=== PATIENT | male | born 1980 | race Caucasian/White ===

== ENCOUNTER 2024-04-06 13:14 | Emergency (ER) | payer OTHER, SELFPAY ==
[2024-04-06 13:22] VITALS: BP 153/98
[2024-04-06 14:37] LABS: % Basophils 1.2 % (0-2); % Eosinophils 1.2 % (0-6); % Immature Granulocytes 0.5 % (0-0.5); % Neutrophils 75.1 % (42.2-75.2); Absolute Basophils 0.1 10^3/uL (0-0.2); Absolute Eosinophils 0.1 10^3/uL (0-0.7); Absolute Lymphocytes 0.7 10^3/uL (1.2-3.4); Absolute Monocytes 0.7 10^3/uL (0.1-0.6); Absolute Neutrophils 4.9 10^3/uL (1.4-6.5); Hematocrit 39.9 % (39.0-52.0); Hemoglobin 14.5 g/dL (13.0-18.0); Mean Corp Hgb Conc. 36.3 g/dL (33.0-37.0); Mean Corpuscular Hgb 33.2 pg (27.0-31.0); Mean Corpuscular Volume 91.3 fL (80.0-94.0); Mean Platelet Volume 10.2 fL (7.4-10.4); Nucleated Red Blood Cells % 0 % (-); Platelet Count 228 10^3/uL (130-400); Red Blood Cell Count 4.37 10^6/uL (4.70-6.10); Red Cell Dist. Width 12.8 % (11.5-14.5); White Blood Cell Count 6.5 10^3/uL (4.8-10.8)
[2024-04-06 14:39] LABS: Urine Albumin Trace (Neg - Trace); Urine Bilirubin 1+ (Negative); Urine Character Clear (Clear); Urine Color Yellow; Urine Glucose Negative (Negative); Urine Ketone Trace (Negative); Urine Leukocyte Trace (Negative); Urine Nitrite Negative (Negative); Urine Occult Blood Negative (Negative); Urine Urobilinogen 1+ (Neg - 1+)
[2024-04-06 14:47] LABS: Urine Mucus Moderate; Urine Squamous Cell 0-2 /LPF (Few)
[2024-04-06 14:48] LABS: Urine Bacteria Few (Negative); Urine Red Blood Cell 0-2 /HPF (0-2); Urine White Cell 0-2 /HPF (0-5)
--- NOTE | 2024-04-06 14:53 | ED.GENMED ---
History of Present Illness
General
Chief Complaint: Abdominal Pain
Source: patient
Time Seen by Provider: 04/06/24 14:37
History of Present Illness
History of Present Illness:
43yoM with a history of anxiety presenting for evaluation of abdominal and chest discomfort. Patient was helping his son move a mattress 2 days ago. He reports that the mattress was very heavy. While he was moving the mattress, he started to feel
like 'I was taking a stress test.' He states he felt like his heart was beating out of his chest. This resolved after a few minutes. Since then, he has been experiencing abdominal discomfort, primarily in the left upper quadrant. He describes
this as feeling like he is being punched. He also reports some discomfort in the left side of his chest which is mostly resolved currently. Patient endorses shortness of breath. He was concerned about his heart so decided to come to the ED for
evaluation. Patient had a nuclear stress test about 1 year ago which was normal without evidence of ischemia. Of note, patient's family had COVID last week and he has been feeling under the weather since then.
Past History
Past History
ED Past Medical History: HTN, Psychiatric (ADHD, alcohol abuse, anxiety, depression, substance abuse), Other (Depression ) and Other (Asperger's disease )
ED Past Surgical History: None
Social History
Tobacco: Smoker
Alcohol: None
Drug: None and Other (Benzodiazepines and other prescription medications )
Personal: Single
Living: with family
Employment: Not employed
Family History
Family History: Early CAD (Patient's father and paternal grandfather had coronary artery disease before the age of 40)
Phy Exam
General Physical Exam
General Presentation: well appearing and no apparent distress
General age: appears stated age
General Skin: warm and dry
General Habitus: normal
General Mental: alert
ENT Exam
ENT Exam: normocephalic
Cardiovascular Exam
Cardiovascular Exam: regular rate/rhythm, no edema, no murmur and normal peripheral pulses (2+ radial and DP pulses bilaterally)
Pulmonary Exam
Pulmonary Exam: lungs clear, no respiratory distress, no crackles and no wheezing
Gastrointestinal Exam
Gastrointestinal Exam: soft, non distended and tender (Very mild tenderness to the LUQ. No rebound or guarding noted.)
Palpation: left upper quadrant: Mild tenderness
[place] Coma Scale
Eye Opening: Spontaneous
Verbal Response: Oriented
Motor Response: Obeys Commands
GCS Total Score: 15
Skin Exam
Skin Exam: normal color and warm/dry
Psychiatric Exam
Psychiatric Exam: normal mood/affect
Course
Orders/Labs/Results
Orders:
Orders
04/06/24 13:16
EKG [Electrocardiogram (*1)] Urgent
Reason for Study: Chest Pain
EKG- Treatment ONCE
04/06/24 14:23
Complete Blood Count/With Diff Urgent
Comprehensive Metabolic Panel Urgent
Lipase Urgent
Troponin I Urgent
Urinalysis Reflex To Culture Stat
Date Specimen was Collected: 04/06/24
Time Specimen was Collected: 14:14
Urine Microscopic Reflex Cult Stat
04/06/24 14:53
CR Chest - 2 Views Urgent
Comment:
Reason For Exam: SOB
04/06/24 15:08
US Abdomen Complete/Upper Urgent
Comment:
Reason For Exam: LUQ pain, transaminitis
04/06/24 15:14
COVID-19 Antigen Urgent
Source: Nasal Swab
Influenza A+B Rapid Molecular Urgent
GARY Source: Nasal Swab
Specimen Description:
Respiratory Syncytial Virus Urgent
GARY Source: Nasal Swab
Specimen Description:
Date Specimen was Collected: 04/06/24
Time Specimen was Collected: 15:06
Abnormal Lab Results
04/06/24
14:23
RBC 4.37 L 10^6/uL
(4.70-6.10)
MCH 33.2 H pg
(27.0-31.0)
Absolute Lymphs (auto) 0.7 L 10^3/uL
(1.2-3.4)
Absolute Monos (auto) 0.7 H 10^3/uL
(0.1-0.6)
Lymphocytes % 11.0 L %
(20.5-51.1)
Monocytes % 11.0 H %
(1.7-9.3)
Glucose 106 H mg/dl
(70-99)
AST 96 H U/L
(17-59)
ALT 52 H U/L
(0-50)
Urine Ketones Trace A
(Negative)
Urine Bilirubin 1+ A
(Negative)
Leukocyte Esterase Rfl Trace A
(Negative)
Urine Bacteria (Reflex) Few A
(Negative)
04/06/24 14:23
04/06/24 14:23
Vital Signs
Initial and Last Documented VS:
Initial Vital Signs
Temp Pulse Resp BP Pulse Ox
98.7 F 86 18 153/98 96
04/06/24 13:22 04/06/24 13:22 04/06/24 13:22 04/06/24 13:22 04/06/24 13:22
Last Documented Vital Signs
Temp Pulse Resp BP Pulse Ox
98.7 F 79 20 138/100 98
04/06/24 13:22 04/06/24 17:15 04/06/24 17:15 04/06/24 16:44 04/06/24 17:15
MDM/Problems Addressed
Differential Diagnosis Includes:
43yoM here with abdominal and chest discomfort. Started while moving a heavy mattress 2 days ago. Symptoms are improving. Also c/o SOB. He is afebrile and hemodynamically stable. He is well appearing in no distress. There is very mild LUQ tenderness
on exam. Exam otherwise reassuring. Differential diagnosis includes but is not limited to: musculoskeletal, gastritis, ACS
Initial ED plan: Check abdominal labs, COVID/flu/RSV swab, troponin/EKG, and CXR.
*EKG
Interpreted by ED Provider?: Yes
EKG Intrepretation Date: 04/06/24
Heart Rate: 75
Rate: normal
Rhythm: sinus
[place]: normal axis
Interval: normal interval
QRS Pattern: normal QRS
Ischemia: no ischemia
*Critical Care Note
Total Time (30-74mins, 75-104mins- exclusive of procedures): Not Applicable
Update Note
Update Note:
EKG shows NSR without ischemic changes and troponin WNL. CXR is clear. Labs show a mild transaminitis with AST 96 and ALT 52. Abdominal ultrasound added which shows hepatomegaly and hepatic steatosis. CBD is on the upper limit of normal. Bilirubin
is normal and he has no RUQ tenderness on exam. Very low clinical suspicion for choledocholithiasis/cholangitis. On reassessment, he states he is completely asymptomatic and would like to go home. He was advised to f/u closely with his PCP. ED
return precautions discussed including fevers, RUQ pain, jaundice. He expressed understanding and is agreeable to plan. Patient discharged in stable condition.
ED Attending Note
-
Portions of this chart may have been created with voice recognition software.� Occasional wrong word or��sound alike� substitutions may have occurred due to the inherent limitations of voice recognition software.
Discharge Plan
Departure
Patient Disposition: Home (Routine Discharge)
Date of Disposition: 04/06/24
Time of Disposition: 17:17
Patient with high blood pressure during this ER visit?: Yes
Discharge Problem:
Chest discomfort, Transaminitis
Instructions: Chest pain - Discharge instructions
Prescriptions:
No Action
aspirin 325 MG tablet
325 mg PO DAILY
venlafaxine [Effexor XR] 150 MG capsule,extended release 24hr
150 mg PO DAILY
lorazepam 1 MG tablet
1 mg PO DAILYPRN PRN (Reason: anxiety)
epinephrine [EpiPen] 0.3 MG/0.3/SYRINGE auto-injector
0.3 mg IM PER PROTOCOL PRN (Reason: allergic reaction) Qty: 2 0RF
ibuprofen 400 MG tablet
400 mg PO Q6HPRN PRN (Reason: pain)
gabapentin 100 MG capsule
100 mg PO TID
Seroquel
450 mg PO HS
Referrals:
Casimiro Zhegn MD [Family Provider] -
Activity Restrictions/Additional Instructions:
Please call your family doctor on Tuesday to schedule a follow-up appointment. Return to the ER with any worsening symptoms, pain in your right upper abdomen, fevers, jaundice (yellowing of your skin or eyes).
Interventions
Interventions:
*Risk Screen - Suicide Last Done: 04/06/24 13:18
*General Assessment Last Done: 04/06/24 13:22
*Neglect/Abuse Screening Last Done: 04/06/24 13:22
*ED COVID-19 Vaccine History Last Done: 04/06/24 15:10
*Nursing Disposition Last Done: 04/06/24 17:24
ES[facility] Assessment Last Done: 04/06/24 15:26
Discharge Date and Time
Discharge Date/Time: 04/06/24 17:24
Print Language: [place] K[place]
[2024-04-06 14:54] LABS: ALT (SGPT) 52 U/L (0-50); AST (SGOT) 96 U/L (17-59); Albumin 4.4 g/dl (3.5-5.0); Alkaline Phosphatase 65 U/L (38-126); Blood Urea Nitrogen 18 mg/dl (9-20); Calcium 9.7 mg/dl (8.4-10.2); Carbon Dioxide 23 mmol/L (22-30); Chloride 100 mmol/L (98-107); Glucose 106 mg/dl (70-99); Potassium 4.3 mmol/L (3.5-5.1); Sodium 139 mmol/L (135-145); Total Bilirubin 0.7 mg/dl (0.2-1.3); Total Protein 7.6 g/dl (6.3-8.2); eGFR > 60.00
[2024-04-06 15:08] LABS: Lipase 125 U/L (23-300)
[2024-04-06 15:09] VITALS: BMI 28.8
[2024-04-06 15:23] VITALS: BP 157/106
[2024-04-06 15:37] LABS: Troponin I < 0.012 ng/ml
[2024-04-06 15:40] LABS: COVID-19 Antigen Negative (Negative)
[2024-04-06 16:00] VITALS: BP 151/109
[2024-04-06 16:44] VITALS: BP 138/100
== END 2024-04-06 17:24 | disposition home or self-care (01) ==
LOC: EMR 13:14
PROVIDERS: Emergency Medicine; Physician Assistant; EMERGENCY PHYSICIAN Emergency Medicine; FAMILY PHYSICIAN Internal Medicine
DX: R07.89 Other chest pain (principal); R06.02 Shortness of breath; R10.12 Left upper quadrant pain; Z11.52 Encounter for screening for COVID-19; R74.01 Elevation of levels of liver transaminase levels; R16.0 Hepatomegaly, not elsewhere classified; F90.9 Attention-deficit hyperactivity disorder, unspecified type; I10 Essential (primary) hypertension; F41.9 Anxiety disorder, unspecified; F32.A Depression, unspecified; F84.5 Asperger's syndrome; F17.200 Nicotine dependence, unspecified, uncomplicated; Z79.82 Long term (current) use of aspirin; Z91.030 Bee allergy status
CPT/HCPCS: 99284; 71046; 76700; 80053; 81003; 81015; 83690; 84484; 85025; 87502; 87807; 87811; 93005